=== PATIENT | female | born 1985 | race African-American/Black ===

== ENCOUNTER 2023-04-16 07:15 | Day surgery (SDC) | payer BC ==
[2023-04-11 16:31] LABS: Absolute Lymphocytes (CBC) 3.9 K/uL (0.7-4.9); Hematocrit 38.3 % (36.0-45.0); Lymphocytes % 29.6 % (15.3-44.8); MCV 70.7 fL (80-100); Platelets 236 thou/uL (152-406); RBC Red Blood Cell Count 5.42 M/uL (3.86-4.86)
[2023-04-11 16:35] LABS: ALT/SGPT 40 U/L (13-56); AST/SGOT 16 U/L (15-37); Alkaline Phosphatase 42 U/L (45-117); BUN Blood Urea Nitrogen 12 mg/dL (7-18); Bicarbonate 25 mEq/L (21-32); Bilirubin Total 0.4 mg/dL (0.2-1.0); Glomerular Filtration Rate 89 ml/min (=/>90); Glucose Level 90 mg/dL (74-106); Lipase 18 U/L (13-75); Potassium 3.8 mEq/L (3.5-5.1); Protein, Total 7.6 g/dL (6.4-8.2); Sodium Level 137 mEq/L (136-145)
[2023-04-11 16:42] LABS: Bilirubin Direct < 0.1 mg/dL (0-0.2); Bilirubin Indirect, Calculated ND mg/dL (0.2-0.8)
[2023-04-16] MEDS ORDERED: Ringers Lactate 1,000 ML IV ONE (07:57)
[2023-04-16] MEDS ORDERED: CIPROFLOXACIN 400mg IV 400 MG/200 ML BAG IV ONE (07:58)
[2023-04-16 08:17] LABS: Urine Specific Gravity/Preg >1.030 (1.005-1.030)
[2023-04-16] MEDS ORDERED: FENTANYL CITR 100 MCG/2 ML ONE (09:19)
[2023-04-16] MEDS ORDERED: propofoL 200 MG/20 ML VIAL IV ONE (09:19)
[2023-04-16] MEDS ORDERED: MIDAZOLAM HCL 2 MG/2 ML INJ ONE (09:21)
[2023-04-16] MEDS ORDERED: ROCURONIUM 50 MG/5 ML VIAL IV ONE (09:21)
[2023-04-16] MEDS ORDERED: LIDOCAINE 2% MPF 5 ML VIAL ONE (09:23)
[2023-04-16] MEDS ORDERED: ONDANSETRON 4 MG/2 ML VIAL ONE (09:23)
[2023-04-16] MEDS ORDERED: MORPHINE 10 MG/ML VIAL ONE (10:33)
--- NOTE | 2023-04-16 10:34 | P.BOP ---
Preoperative diagnosis: acute cholecystitis, symptomatic cholelithiasis Postoperative diagnosis: same Primary procedure: Laparoscopic cholecystectomy Estimated blood loss: <10cc Specimen: gb Findings: as above Anesthesia: General Complications: None Transferred to: Recovery Room Condition: Good
[2023-04-16] MEDS ORDERED: LABETALOL HCL 100 MG/20 ML ONE (11:05)
[2023-04-16] MEDS ORDERED: HYDROMORPHONE HCL 1 MG/ML INJ ONE (11:27)
[2023-04-16] MEDS ORDERED: HYDRALAZINE HCL 20 MG/ML VIAL ONE (11:34)
[2023-04-16 13:28] VITALS: BP 137/82; TEMP 97.6; O2SAT 97
--- NOTE | 2023-04-17 19:11 | DS ---
Date of Discharge: 04/16/2023 Diagnoses: Acute cholecystitis, symptomatic cholelithiasis. Procedure: Laparoscopic cholecystectomy. Disposition: Home. Activity: As tolerated. No heavy lifting. Plan: Follow up in my office in 1 week. Call for appointment [phone]. Keep area dry for 48 hours, then may shower. Keep Steri-Strip intact. WILLIAM/BLOSSOM Voice ID: [id number] Report ID: [id number]
--- NOTE | 2023-04-17 19:11 | OP ---
Surgeon: Abram Carrizales MD Preoperative Diagnoses: Acute cholecystitis, symptomatic cholelithiasis. Postoperative Diagnosis: Acute cholecystitis, symptomatic cholelithiasis. Procedure: Laparoscopic cholecystectomy. Estimated Blood Loss: Less than 10 cc. Specimen: Gallbladder. Anesthesia: General plus local. Finding: As above. Indication: This is a case of a female, who comes to us with above diagnosis, fully explained the be nefits, alternatives, and risks of laparoscopic, possible open cholecystectomy, which include, but no t limited to, infection, bleeding, damage to adjacent structures, anesthesia complication, choledocho lithiasis, bile leak, pancreatitis, DC, and even . She also understands this may not relieve an y symptoms. She might need more than one surgical intervention. She understood, signed a consent. Description Of Operation: Patient brought to the operating room, placed in supine position. Anesthe salomon was achieved without complication. Abdominal area was prepped and draped in usual sterile fashio n. Marcaine 0.5% was injected for local anesthetic followed by sharp incision of the skin in the inf raumbilical region. Incision was carried down to fascia, which was opened under direct vision. Michelle toneum was encountered, opened under direct vision. Vicryl #1 placed inside the fascia. Bradley troc ar was carefully introduced. Pneumoperitoneum was obtained. I placed 3 more trocars, 5 mm each one of them in the epigastric, right upper quadrant under direct visualization. This allowed me to put a grasper in the fundus of the gallbladder, another grasper in the infundibulum, retracting the gallbl adder in the inferolateral fashion exposing the triangle of Calot, obtaining critical view. Cystic d uct and cystic artery were clearly identified circumferentially and a connection between those and th e gallbladder were clearly identified. I proceeded to ligate those by using at least 3 clips proxima l, 1 clip distal, ligation in the middle. Same was done with the cystic artery. No bile leak. No b leeding. The gallbladder was removed from liver using Bovie cauterizer and removed from abdominal ca vity using EndoCatch through the umbilical incision. The area was inspected once again. No bile valorie k. No bleeding. At that moment, I proceeded to remove the trocars under direct vision, deflated pne umoperitoneum, closed the fascia with #1 Vicryl, irrigated subcutaneous tissue, closed that with 3-0 chromic and the skin with 3-0 chromic. Sponge count and instrument counts were correct. Patient dedrick erated the procedure well. Patient sent to Recovery in stable condition. WILLIAM/MODThai Voice ID: [id number] Report ID: [id number]
== END 2023-04-16 12:25 | disposition home or self-care (01) ==
LOC: OR 07:15
PROVIDERS: ATTEND Surgery
PROC: 0FT44ZZ Resection of Gallbladder, Percutaneous Endoscopic Approach (ICD-10-PCS; principal; 2023-04-16 09:30)
DX: K80.10 Calculus of gallbladder with chronic cholecystitis without obstruction (principal); Z88.0 Allergy status to penicillin; I10 Essential (primary) hypertension
CPT/HCPCS: 85025; 80048; 36415; 81025; 80076; 88304; 83690; 47562; J0360; J2704; J2001; J2250; J3010; J1170; J2405; J0744; J7120